=== PATIENT | male | born 1995 | race Caucasian/White ===

== ENCOUNTER 2019-03-07 14:05 | Emergency (ER) | payer MEDICAID ==
[~2019-03-07] VITALS: Ht 175.3 cm; Wt 50.0 kg
[2019-03-07] MEDS ORDERED: normal saline 1000ML IV soln IVB ONE (16:00)
[2019-03-07 16:24] LABS: CLARITY,URINE CLEAR (Clear); COLOR,URINE STRAW (Yellow); GLUCOSE, URINE NEGATIVE (Neg); KETONES,URINE NEGATIVE (Neg); LEUKOCYTE ESTERASE ,URINE TRACE (Neg); NITRITES, URINE NEGATIVE (Neg); OCCULT BLOOD,URINE NEGATIVE (Neg); PROTEIN,URINE NEGATIVE (Neg); UROBILINOGEN,URINE 0.2 E.U/dL (0.2-1.0)
[2019-03-07 16:25] LABS: UA COLLECTION TYPE URINAL
[2019-03-07 16:38] LABS: BACTERIA,URINE 1+ /HPF (Neg); RBC,URINE 0-2 /HPF (0-2); SQUAMOUS EPITHELIAL CELL,UR FEW /LPF (FEW); WBC,URINE 0-4 /HPF (0-4)
[2019-03-07] MEDS ORDERED: ONDA4TAB12 PO (16:49)
[2019-03-07 16:56] VITALS: BP 128/85
== END 2019-03-07 16:58 | disposition home or self-care (01) ==
LOC: ER 14:06
DX: R00.2 Palpitations (principal); R11.2 Nausea with vomiting, unspecified; R51 Headache; F12.90 Cannabis use, unspecified, uncomplicated; Z79.899 Other long term (current) drug therapy
CPT/HCPCS: 81001; 93005; 99284

== ENCOUNTER 2021-06-21 09:07 | Emergency (ER) | payer MEDICAID, OTHER ==
[~2021-06-21] VITALS: Ht 177.8 cm; Wt 56.8 kg
[~2021-06-21 09:07] MED LIST: ONDA4TAB12 PO
[2021-06-21 09:17] VITALS: BP 117/78
== END 2021-06-21 10:28 | disposition home or self-care (01) ==
LOC: ER 09:08
DX: S93.401A Sprain of unspecified ligament of right ankle, initial encounter (principal); F17.200 Nicotine dependence, unspecified, uncomplicated; F12.10 Cannabis abuse, uncomplicated; Z79.899 Other long term (current) drug therapy; W17.89XA Other fall from one level to another, initial encounter; Y93.89 Activity, other specified; Y92.89 Other specified places as the place of occurrence of the external cause; Y99.8 Other external cause status
CPT/HCPCS: 29105; 73610; 99283